=== PATIENT | male | born 1935 | race Caucasian/White ===

== ENCOUNTER 2021-11-16 12:35 | Emergency (ER) | payer OTHER ==
[~2021-11-16 12:35] MED LIST: ARICEPT 10MG TA10 MG PO; ASPIRIN EC81 MG PO; COREG 6.25MG6.25 MG PO; FOLGARD TABLET1 EACH PO; LIPITOR 10MG TA10 MG PO; LOVAZA1 GM PO; NAMENDA 10MG TA10 MG PO; NAMZARIC 21 MG1 EACH PO; NU-IRON 150150 MG PO; PRILOSEC20 MG PO; PROTONIX 40MG T40 MG PO; ZOLOFT25 MG PO
[2021-11-16 13:13] LABS: BASOPHIL 0.2 % (0-2); EOSINOPHIL 0.3 % (0-7); HCT 38.8 % (42.0-52.0); HGB 12.8 g/dl (13.2-18.0); LYMPHOCYTE 34.7 % (15-48); MCH 30.9 pg (25.0-31.0); MCV 93.7 fL (78.0-100.0); MONOCYTE 5.7 % (0-12); NEUTROPHIL 58.9 % (41-80); NRBC 0; PLT 144 K/uL (150-400); RBC 4.14 M/uL (4.70-6.00); RDW 12.5 % (11.5-14.0); WBC 8.8 K/uL (4.0-10.5)
[2021-11-16 13:27] LABS: BUN/CREAT RATIO (CALC) 17.4 RATIO; CREATININE 2.13 mg/dL (0.67-1.17); POTASSIUM 4.4 mmol/L (3.5-5.1)
== END 2021-11-16 16:30 | disposition home or self-care (01) ==
LOC: FER 12:35
PROVIDERS: Emergency Medicine
DX: F03.90 Unspecified dementia, unspecified severity, without behavioral disturbance, psychotic disturbance, mood disturbance, and anxiety (principal); N18.30 Chronic kidney disease, stage 3 unspecified
CPT/HCPCS: 36415; 73502; 80048; 84484; 85025; 93005

== ENCOUNTER 2022-05-10 09:35 | Emergency (ER) | payer OTHER | END 2022-05-10 13:54 | disposition home or self-care (01) | LOC: FER 09:35 | DX: S00.03XA Contusion of scalp, initial encounter (principal); F03.90 Unspecified dementia, unspecified severity, without behavioral disturbance, psychotic disturbance, mood disturbance, and anxiety; I10 Essential (primary) hypertension; F17.200 Nicotine dependence, unspecified, uncomplicated; W19.XXXA Unspecified fall, initial encounter; Y93.89 Activity, other specified | CPT/HCPCS: 70450; 71045; 72125; 72170 ==